=== PATIENT | female | born 1945 | race Caucasian/White ===

== ENCOUNTER 2018-05-15 08:26 | Day surgery (SDC) | payer OTHER | END 2018-05-15 11:00 | disposition home or self-care (01) | LOC: FASU-ENDO 08:26 ==

== ENCOUNTER 2024-01-04 07:42 | Day surgery (SDC) | payer OTHER ==
[2023-12-30 09:29] VITALS: BMI 22.2
[2024-01-04 08:13] VITALS: RESP 18
[2024-01-04 09:55] VITALS: TEMP 97
[2024-01-04 10:25] VITALS: BP 114/62; PULSE 90
== END 2024-01-04 10:26 | disposition home or self-care (01) ==
LOC: FASU-ENDO 07:42
PROVIDERS: ATTEND Internal Medicine Gastroenterology
PROC: 0DBM8ZX Excision of Descending Colon, Via Natural or Artificial Opening Endoscopic, Diagnostic (ICD-10-PCS; 2024-01-04)
PROC: 0DBK8ZX Excision of Ascending Colon, Via Natural or Artificial Opening Endoscopic, Diagnostic (ICD-10-PCS; principal; 2024-01-04 09:25)
DX: Z12.11 Encounter for screening for malignant neoplasm of colon (principal); D12.2 Benign neoplasm of ascending colon; D12.4 Benign neoplasm of descending colon; K57.30 Diverticulosis of large intestine without perforation or abscess without bleeding; Z86.010 Personal history of colon polyps
CPT/HCPCS: 88305-TC